=== PATIENT | female | born 1995 | race Caucasian/White ===

== ENCOUNTER → 2021-04-02 12:39 | Outpatient (CLI) | payer OTHER, SELFPAY ==
--- NOTE | 2021-04-02 | DI.CT.S_ITS ---
PROCEDURE: CT SINUS SCREEN WO CON INDICATIONS: Chronic pansinusitis TECHNIQUE: Noncontrast 3.0 mm axial images acquired from the frontal sinuses to the mid-sella, with coronal and sagittal reformats. For radiation dose reduction, the following was used: automated exposure control, adjustment of mA and/or kV according to patient size. COMPARISON: None. FINDINGS: Image quality: Excellent. Maxillary Sinuses: No bony remodeling or destruction. Sinuses are clear. Ethmoid Air Cells: No bony remodeling or destruction. Sinuses are clear. Sphenoid Sinuses: No bony remodeling or destruction. Sinuses are clear. Frontal Sinuses: No bony remodeling or destruction. Sinuses are clear. Ostiomeatal Complexes: Ostiomeatal complexes are patent, yet they are highly narrowed, with bilateral Dora cells. Miscellaneous: Visualized intra-orbital contents are normal. No farheen bullosa or paradoxical turbinate curvature. There is been mild S shaped nasal septal deviation. IMPRESSION: No significant active paranasal sinus disease is seen. Constitutionally narrowed ostiomeatal complexes. Mild S shaped nasal septal deviation. Dictated by: Quintin Massey M.D. on 04/02/2021 at 12:07 Approved by: Quintin Massey M.D. on 04/02/2021 at 12:08
== END ==
PROVIDERS: Referring Provider Otolaryngology; Visit Provider Otolaryngology
DX: J32.4 Chronic pansinusitis (principal); J34.89 Other specified disorders of nose and nasal sinuses; J34.2 Deviated nasal septum
CPT/HCPCS: 70486

== ENCOUNTER → 2021-08-05 09:07 | Outpatient (CLI) | payer OTHER, SELFPAY ==
[2021-08-05 11:15] LABS: COVID19 -Nasal RAPID Negative (Negative)
== END ==
PROVIDERS: PCP Nurse Practitioner Family; Visit Provider Nurse Practitioner Family
DX: Z01.812 Encounter for preprocedural laboratory examination (principal); Z20.822 Contact with and (suspected) exposure to COVID-19
CPT/HCPCS: 87635

== ENCOUNTER 2021-08-06 07:38 | Day surgery (SDC) | payer OTHER, SELFPAY ==
[2021-08-04 08:16] VITALS: BMI 33.2
[2021-08-06] VITALS (7 sets, daily range): BP systolic 109–151; BP diastolic 62–96; PULSE 70–109; RESP 13–25; TEMP 36.2–37.6; O2SAT 97–100; BMI 33.2
[2021-08-06] MEDS: LACTATED RINGERS 1,000 ML 42 ML IV ×2 (07:47→09:58)
[2021-08-06] MEDS: OXYMETAZOLINE NASAL SPRAY 15 ML 2 SPRAYS NASAL ×2 (07:48→09:07)
--- NOTE | 2021-08-06 08:26 | PM.PREOP ---
Pre-operative Note Interval Note History & Physical reviewed/Exam performed by Physician: Yes Changes to H&P: No
--- NOTE | 2021-08-06 08:27 | P.HP_ITS ---
History of Present Illness History of Present Illness Date Patient Seen: 08/06/21 Time Patient Seen: 08:27 Chief complaint: Nasal airway obstruction Narrative: 26-year-old female with persistent nasal airway obstruction despite medical therapy, presents for septoplasty, inferior turbinate reduction, and possible internal nasal valve release. She was last seen in clinic 04/21/2021 with a nearly clear sinus CT. No interval health changes, no recent cough, cold, or fever. Patient History Medical History Chronic rhinosinusitis Surgical History No history of previous surgery Family & Social History Social History: household members spouse,children Tobacco & Substance use: Smoking Status Never smoker alcohol intake current alcohol intake frequency holiday/special occasion Substance Use Type does not use Meds Home Medications and Allergies Home Medications Medication Instructions Recorded Confirmed Type No Known Home Medications 08/06/21 08/06/21 History Allergies Allergy/AdvReac Type Severity Reaction Status Date / Time No Known Drug Allergies Allergy Verified 08/06/21 07:41 Review of Systems Review of Systems Narrative: Negative except as listed in the HPI Exam Vital Signs (past 8 hours): - 08/06/21 07:57 Temperature 98.1 F Pulse Rate 70 Respiratory Rate 16 Blood Pressure 109/72 Pulse Oximetry 100 Oxygen Delivery Method Room Air Narrative Exam Narrative: Well-developed well-nourished female in no acute distress heart regular rate and rhythm without murmur, lungs clear to auscultation bilaterally Assessment & Plan Assessment & Plan narrative: Assessment: Nasal airway obstruction, septal deviation, inferior turbinate hypertrophy, internal nasal valve restriction, anosmia Plan: Following discussion of the material risks benefits complications and a lternatives, the patient elected to proceed with septoplasty, inferior turbinate reduction, and possible internal nasal valve release as outpatient. Time Spent With Patient Critical Care time: I spent a total of [] minutes of critical care time on this patient's care today; this time is exclusive of procedural time.
--- NOTE | 2021-08-06 08:30 | P.OP_ITS ---
Operative Date/Time/Diagnoses Date of procedure: 08/06/21 Time of procedure: 10:11 Pre-op diagnosis: Nasal airway obstruction, septal deviation, inferior turbinate hypertrophy, internal nasal valve obstruction, anosmia Post-op diagnosis: same (Patent INV at completion) Procedure & Clinicians Procedure: 1. Septoplasty 2. Bilateral inferior turbinate reduction via intramural cautery Same procedure as scheduled: Yes Indications: 26-year-old female with the above diagnoses incompletely managed with medical therapy presents for the above procedures. Following discussion of the material risks benefits complications and alternatives, she elected to proceed. Surgeon: Delroy Downs Click Yes if Unassisted: Yes Anesthesia Type: General and Local Operative Notes Findings: 2 to 3+ left septal deviation, right greater than left inferior turbinate hypertrophy. 2 LEFT flap perforations, low ant and posterior from spur resection, RIGHT intact. INV patent after septoplasty, no release necessary Closure Type: primary Prosthetic devices, grafts, tissues, transplants, or devices: Bilateral silastic nasal splints Estimated Blood Loss (mL): 50 Procedure in detail: Following identification and confirmation of consent as well as preoperative Afrin nasal spray, the patient was brought to the operating room suite and placed in the supine position. General endotracheal anesthesia was administered. I infiltrated the septum widely bilaterally with 1% lidocaine 1 100,000 epinephrine followed by temporary packing with cotton with Afrin and 4% lidocaine. Following sterile prep and drape, the packing was removed and I performed a right christelle-transfixion incision, elevated the right mucoperichondrial and mucoperiosteal flap. I disarticulated near the bony/cartilaginous junction and elevated the left mucoperiosteal flap. Deviated portions of the perpendicular plate of the ethmoid and vomer were resected. The residual quadrilateral cartilage was further straightened by trimming it inferiorly as well as reducing the maxillary crest. A 2 mm strip of cartilage paralleling the residual 1 cm dorsal and caudal strut was resected to further straighten the quadrilateral cartilage. The hemitransfixion incision was closed with interrupted 5 0 chromic followed by a running 4 0 plain gut mattress suture to reapproximate the septal flaps. At case completion, 20/1000th of an inch silastic splints were placed bilaterally, sutured anteriorly with a single 4 0 nylon. The head of each inferior turbinate had been previously infiltrated with additional local anesthetic and a 25 gauge spinal needle was used to impale the length of the turbinate, with cautery on a setting of 15 activated on slow withdrawal over 2 passes. The turbinates were then outfractured. The procedure completed, sponge and needle counts were correct and the patient was extubated in the operating room and taken to recovery room in stable condition without known complication. Postoperative care: Nasal saline every hour while awake, Vaseline or Polysporin to the nostrils at all times, begin irrigations t.i.d. beginning pod 1. Humidifier at the bedside blowing on the face. Tylenol alternating with Advil for pain control, oxycodone if necessary for breakthrough pain. Complications: none Post-operative Condition: stable Disposition: same day surgery Plan for aftercare: Nasal saline every hour while awake, begin irrigations t.i.d. tomorrow if desired. Polysporin to the nostrils at all times, Tylenol alternating with A dvil for pain control, oxycodone for breakthrough pain. Ice to upper lip as tolerated. Elevate head of bed, no nose blowing, no straining for 2 weeks. Follow-up in 1 week for nasal splint removal.
--- NOTE | 2021-08-06 08:42 | SUR.OPER ---
Supine on padded OR bed, head on pillow, arms padded and tucked at sides, legs uncrossed, safety belt at thigh, tape over blanket over lower legs .
[2021-08-06] MEDS: BACITRACIN OINT 0.9 GM PCKT 1 APPLIC TOP (09:06)
[2021-08-06] MEDS: LIDOCAINE 4% SOLN 50 ML 20 ML TOP (09:07)
[2021-08-06] MEDS: LIDOCAINE 1% W/EPI 20 ML INJ (09:07)
[2021-08-06] MEDS: OXYCODONE/ACETAMINOPHEN 5/325 TABLET 1 TAB PO ×2 (10:39→11:44)
--- NOTE | 2021-08-06 11:50 | SUR.PHASEII ---
Nasal cover changed x2 for break thru bleeding. Permitted pt to use 1 spray of afrin to control bleeding. DC instructions reviewed with pt. notified and waiting at ED entrance. Pt escorted out via WC by STEVE Castaneda.
== END 2021-08-06 11:55 | disposition home or self-care (01) ==
PROVIDERS: PCP Nurse Practitioner Family; Referring Provider Otolaryngology; Visit Provider Otolaryngology
PROC: (CPT 30520; principal; 2021-08-06 08:30)
DX: J34.2 Deviated nasal septum (principal); J34.89 Other specified disorders of nose and nasal sinuses; R43.0 Anosmia; J34.3 Hypertrophy of nasal turbinates
CPT/HCPCS: 30520; 30802; 81025; A9270; J0330; J1100; J2405; J2704; J3010